=== PATIENT | female | born 1960 | race Caucasian/White ===

== ENCOUNTER 2022-01-02 21:51 | Inpatient (IN) | payer OTHER, SELFPAY ==
[2022-01-02 23:58] LABS: Absolute Lymphocytes (CBC) 0.2 K/uL (0.7-4.9); Hematocrit 36.8 % (36.0-45.0); Lymphocytes % 2.7 % (15.3-44.8); MCV 99.6 fL (80-100); MPV 8.6 fL (7.6-11.3)
[2022-01-03 00:05] LABS: Magnesium 2.2 mg/dL (1.8-2.4); Potassium 3.7 mmol/L (3.5-5.1); Troponin High Sensitivity 4.7 pg/mL (<58.9)
--- NOTE | 2022-01-03 00:35 | ER ---
Nurse's Notes [facility] Name: Janett Doherty Age: 61 yrs Sex: Female : 1960 Arrival Date: 01/02/2022 Time: 21:59 Bed 6 Private MD: Diagnosis: hyponatremia;Other seizures Presentation: 01/02 22:03 Chief complaint: EMS states: called out for SOB, on seen pt appeared to be having a as6 panic attack and hyperventilating, agricultural engineering teacher instructed pt on breathing, pt then started having a seizure, EMS gave 2mg Ativan. Coronavirus screen: At this time, the client does not indicate any symptoms associated with coronavirus-19. Ebola Screen: No symptoms or risks identified at this time. Initial Sepsis Screen: Does the patient meet any 2 criteria? No. Patient's initial sepsis screen is negative. Does the patient have a suspected source of infection? No. Patient's initial sepsis screen is negative. Risk Assessment: Do you want to hurt yourself or someone else? Unable to obtain. Onset of symptoms was January 02, 2022. Care prior to arrival: Medication(s) given: ativan 2 mg IV initiated. 18 GA, in the right antecubital area. 22:03 Method Of Arrival: EMS: [facility] as6 22:03 Acuity: JUSTIN 2 as6 Historical: - Allergies: 22:07 Unable to obtain; as6 - Home Meds: 22:07 venlafaxine 75 mg oral cp24 1 cap twice a day [Active]; [place] Thyroid 30 mg Oral tab 1 as6 tab once daily [Active]; verapamil 120 mg Oral C24P 1 cap once daily [Active]; - PMHx: 22:07 Unable to Obtain; as6 - PSHx: 22:07 Unable to Obtain; as6 - Immunization history:: Adult Immunizations unknown. - Social history:: Smoking status: unknown. Screenin:12 Abuse screen: Denies threats or abuse. Denies injuries from another. Nutritional as6 screening: No deficits noted. Tuberculosis screening: No symptoms or risk factors identified. Fall Risk None identified. Assessment: 22:10 General: Appears slender, Behavior is drowsy, quiet. Pain: Unable to use pain scale. as6 Patient is disoriented. Neuro: Level of Consciousness is lethargic, post ictal. Respiratory: Respiratory effort is even, unlabored. 22:22 Reassessment: Spoke with sister, Vita, sister reports pt does not have a history of as6 seizures, [phone]. 01/03 01:00 General: pt awake. pt states she does not remember calling 911. as6 Vital Signs: 01/02 22:03 BP 143 / 81; Pulse 93; Resp 13 S; Temp 97.6(A); Pulse Ox 96% on R/A; Weight 63.5 kg; as6 Height 5 ft. 6 in. (167.64 cm); 23:27 BP 117 / 65; Pulse 69; Pulse Ox 98% on R/A; ld1 01/03 00:59 BP 142 / 72; Pulse 72; Resp 14 S; Pulse Ox 100% on R/A; as6 01/02 22:03 Body Mass Index 22.60 (63.50 kg, 167.64 cm) as6 ED Course: 01/02 21:59 Patient arrived in ED. ms3 21:59 Eloy Dhaliwal DO is Attending Physician. ms3 22:02 Jose F Cuenca, CARO is Primary Nurse. as6 22:07 Triage completed. as6 22:10 Arm band placed on. as6 22:22 XRAY Chest (1 view) In Process Unspecified. EDMS 23:32 CT Head Brain wo Cont In Process Unspecified. EDMS 01/03 00:34 Kelvin Steinberg is Hospitalizing Provider. ms3 00:59 Placed in gown. Bed in low position. Call light in reach. Side rails up X2. Seizure as6 precautions initiated. Client placed on continuous cardiac and pulse oximetry monitoring. NIBP monitoring applied. Warm blanket given. 01:19 Shira Ordoñez MD is Hospitalizing Provider. ms3 03:03 No provider procedures requiring assistance completed. Patient admitted, IV remains in as6 place. 07:16 Primary Nurse role handed off by Jose F Cuenca, CARO eb 10:23 Edgar Morillo, CARO is Primary Nurse. ll1 Administered Medications: No medications were administered Medication: 00:59 VIS not applicable for this client. as6 Outcome: 00:34 Decision to Hospitalize by Provider. ms3 03:03 Admitted to ER Hold. Please see [employer] for further documentation. as6 03:03 Condition: stable 03:03 Instructed on the need for admit. 22:37 Patient left the ED. tw5 Signatures: Dispatcher [employer] EDPing Jarvis Lynsay RN RN ll1 Eloy Dhaliwal, DO BRANDON ms3 Katerine Carvajal RN RN ld1 Bushra Perry tw5 Jose F Cuenca RN RN as6
--- NOTE | 2022-01-03 00:35 | EDPHYS ---
Physician Documentation [facility] Name: Janett Doherty Age: 61 yrs Sex: Female : 1960 Arrival Date: 01/02/2022 Time: 21:59 Bed 6 Private MD: ED Physician Eloy Dhaliwal HPI: 01/03 03:06 This 61 yrs old Female presents to ER via EMS with complaints of shortness of breath/ ms3 seizure. 03:06 The patient presents after having a single isolated seizure, that lasted 1.5 minute(s). ms3 Character of seizure(s): Loss of consciousness: the patient experienced loss of consciousness, Motor activity: generalized, Incontinence: none, Apnea: the patient did not experience apnea, Circulation: the patient did not experience evidence of pulse disturbance. Seizure onset: just prior to arrival. Context: the seizure(s) was witnessed, by EMS personnel. Seizure Hx: Patient states she has had episodes similar to this with anxiety. Associated injury: The patient did not suffer any apparent associated injury. EMS care: Ativan, 2 mg(s), IV. Current symptoms: confusion. Historical: - Allergies: 01/02 22:07 Unable to obtain; as6 - Home Meds: 22:07 venlafaxine 75 mg oral cp24 1 cap twice a day [Active]; [place] Thyroid 30 mg Oral tab 1 as6 tab once daily [Active]; verapamil 120 mg Oral C24P 1 cap once daily [Active]; - PMHx: 22:07 Unable to Obtain; as6 - PSHx: 22:07 Unable to Obtain; as6 - Immunization history:: Adult Immunizations unknown. - Social history:: Smoking status: unknown. ROS: 01/03 03:06 Constitutional: Negative for fever, and chills. Neck: Negative for injury, pain, and ms3 swelling, Cardiovascular: Negative for chest pain, and palpitations. Abdomen/GI: Negative for abdominal pain, nausea, vomiting, diarrhea, and constipation, MS/Extremity: Negative for injury and deformity, Skin: Negative for injury, rash, and discoloration. Respiratory: Positive for shortness of breath. All other systems are negative. Exam: 01/02 22:47 ECG was reviewed by the Attending Physician. ms3 01/03 03:06 Constitutional: This is a well developed, well nourished patient who is awake, alert, ms3 and in no acute distress. Head/Face: Normocephalic, atraumatic. Eyes: Pupils equal round and reactive to light, extra-ocular motions intact. Lids and lashes normal. Conjunctiva and sclera are non-icteric and not injected. Periorbital areas with no swelling, redness, or edema. Neck: Trachea midline, no cervical lymphadenopathy. Supple, full range of motion without nuchal rigidity, or vertebral point tenderness. No Meningismus. Chest/axilla: Normal chest wall appearance and motion. Nontender with no deformity. Cardiovascular: Regular rate and rhythm with a normal S1 and S2. No gallops, murmurs, or rubs. Normal PMI, no JVD. No pulse deficits. Respiratory: Lungs have equal breath sounds bilaterally, clear to auscultation and percussion. No rales, rhonchi or wheezes noted. No increased work of breathing, no retractions or nasal flaring. Abdomen/GI: Soft, non-tender, with normal bowel sounds. No distension or tympany. No guarding or rebound. No evidence of tenderness throughout. Skin: Warm, dry with normal turgor. Normal color with no rashes, no lesions, and no evidence of cellulitis. MS/ Extremity: Pulses equal, no cyanosis. Neurovascular intact. Full, normal range of motion. Psych: Awake, alert, with orientation to person, place and time. Behavior, mood, and affect are within normal limits. Vital Signs: 01/02 22:03 BP 143 / 81; Pulse 93; Resp 13 S; Temp 97.6(A); Pulse Ox 96% on R/A; Weight 63.5 kg; as6 Height 5 ft. 6 in. (167.64 cm); 23:27 BP 117 / 65; Pulse 69; Pulse Ox 98% on R/A; ld1 01/03 00:59 BP 142 / 72; Pulse 72; Resp 14 S; Pulse Ox 100% on R/A; as6 01/02 22:03 Body Mass Index 22.60 (63.50 kg, 167.64 cm) as6 MDM: 01/02 21:59 Patient medically screened. ms3 01/03 03:06 Differential diagnosis: seizure, Anxiety vs electrolyte abnormality. Data reviewed: ms3 vital signs, nurses notes, lab test result(s), EKG, radiologic studies, CT scan, and as a result, I will admit patient. Data interpreted: Pulse oximetry: on room air is 100 %. Interpretation: normal. Counseling: I had a detailed discussion with the patient and/or guardian regarding: the historical points, exam findings, and any diagnostic results supporting the discharge/admit diagnosis, lab results, radiology results, the need for further work-up and treatment in the hospital. ED course: Discussed case with HANNAH Figueroa and she accepts patient on behalf of Dr Ordoñez.. 01/02 22:04 Order name: Basic Metabolic Panel; Complete Time: 00:29 ms3 01/02 22:04 Order name: CBC with Diff; Complete Time: 01:37 ms3 01/02 22:04 Order name: Magnesium; Complete Time: 00:29 ms3 01/02 22:04 Order name: Troponin HS; Complete Time: 00:29 ms3 01/03 00:01 Order name: Manual Differential; Complete Time: 01:37 EDMS 01/03 00:40 Order name: COVID-19 SARS RT PCR (Document "Date of Onset" if Symptomatic); Complete as6 Time: 02:28 01/03 03:36 Order name: Urine Drug Screen; Complete Time: 03:46 EDMS 01/03 03:48 Order name: Basic Metabolic Panel; Complete Time: 03:51 EDMS 01/03 03:48 Order name: Phosphorus; Complete Time: 03:51 EDMS 01/03 03:48 Order name: T4 Free; Complete Time: 03:51 EDMS 01/03 03:48 Order name: Magnesium; Complete Time: 03:51 EDMS 01/03 03:48 Order name: Thyroid Stimulating Hormone; Complete Time: 03:51 EDMS 01/03 03:52 Order name: CBC with Automated Diff; Complete Time: 03:53 EDMS 01/03 05:01 Order name: Urinalysis; Complete Time: 05:17 EDMS 01/02 22:04 Order name: XRAY Chest (1 view); Complete Time: 22:11 ms3 01/02 22:04 Order name: EKG; Complete Time: 22:05 ms3 01/02 22:04 Order name: Cardiac monitoring; Complete Time: 22:12 ms3 01/02 22:04 Order name: EKG - Nurse/Tech; Complete Time: 22:47 ms3 01/02 22:04 Order name: IV Saline Lock; Complete Time: 22:12 ms3 01/02 22:04 Order name: Labs collected and sent; Complete Time: 22:47 ms3 01/02 22:04 Order name: O2 Per Protocol; Complete Time: 22:12 ms3 01/02 22:04 Order name: O2 Sat Monitoring; Complete Time: 22:12 ms3 01/02 22:09 Order name: CT Head Brain wo Cont; Complete Time: 22:11 ms3 01/03 05:14 Order name: Urine Microscopic Only; Complete Time: 05:17 EDMS 01/03 05:46 Order name: Osmolality, Urine; Complete Time: 05:48 EDMS 01/03 05:47 Order name: UR SODIUM; Complete Time: 05:48 EDMS 01/03 06:17 Order name: Osmolality, Serum; Complete Time: 06:19 EDMS EC/13 22:47 Rate is 85 beats/min. Rhythm is regular. QRS [place] is Normal. QT interval is prolonged ms3 at 509 msec. Clinical impression: NSR with prolonged QT. Interpreted by me. Reviewed by me. Administered Medications: No medications were administered Disposition Summary: 01/03/22 00:34 Hospitalization Ordered Hospitalization Status: Inpatient Admission ms3 Condition: Stable ms3 Problem: new ms3 Symptoms: are unchanged ms3 Bed/Room Type: Standard ms3 Provider: Shira Ordoñez(01/03/22 01:19) ms3 Location: Telemetry/MedSurg (Inpatient)(01/03/22 19:32) Room Assignment: 217(01/03/22 22:12) Diagnosis - hyponatremia ms3 - Other seizures ms3 Forms: - Medication Reconciliation Form ms3 - SBAR form ms3 Signatures: Dispatcher [employer] EDMS Rosa Ruiz RN RN mw Basinger, Emily RN RN eb1 Eloy Dhaliwal DO DO ms3 Jose F Cuenca RN RN as6 Margarita Al PA PA sb3 Corrections: (The following items were deleted from the chart) 01/03 01:16 00:34 Telemetry/MedSurg (Inpatient) ms3 eb1 01:16 00:34 ms3 eb1 01:19 00:34 Kelvin Steinberg ms3 ms3 19:32 01:16 [facility] ER HOLD eb1 mw 19:32 01:16 ERHOLD- eb1 mw 22:12 19:32 mw mw
[2022-01-03 01:17] LABS: Blood Morphology Comment NOT SEEN (NOT SEEN); Platelet Estimate ADEQ
--- NOTE | 2022-01-03 01:55 | P.HP ---
Certification for Inpatient Patient admitted to: Inpatient With expected LOS: <2 Midnights Patient will require the following post-hospital care: None Practitioner: I am a practitioner with admitting privileges, knowledge of patient current condition, hospital course, and medical plan of care. Services: Services provided to patient in accordance with Admission requirements found in Title 42 Section 412.3 of the Code of Federal Regulations <Margarita Al - Last Filed: 01/03/22 02:26> Patient History Date of Service: 01/03/22 Reason for admission: Hyponatremia History of Present Illness: Patient is a 61-year-old F with hypertension and hypothyroidism who presented to the ED via EMS after witnessed seizure. Per EMS, patient called complaining of shortness of breath. When they arrived, she was noted to be hyperventilating and experiencing a panic attack. She then began to seize and administered 2 mg Ativan. Patient was postictal upon arrival. Vital signs stable. Her sister reports no history of seizures. Labs significant for Na 120, Cl 86, CO2 18, head CT negative. Serum osmolality, urine osmolality, urine sodium pending. Upon my assessment, patient no longer appears postictal but does seem altered, likely an underlying psychiatric component. Patient states she has been vomiting the past week and is dehydrated, likely causing hyponatremia. She is admitted for further evaluation and treatment. Home medications list reviewed: Yes - Past Medical/Surgical History Diabetic: No -: Hypothyroidism -: Hypertension Past Surgical History: Patient denies surgical history Psychosocial/ Personal History: Patient lives at home alone. - Social History Smoking Status: Former smoker Alcohol use: No CD- Drugs: No Caffeine use: Yes Place of Residence: Home <Margarita Al - Last Filed: 01/03/22 02:26> Date of Service: 01/03/22 <Shira Ordoñez - Last Filed: 01/03/22 08:52> Review of Systems General: Weakness <Margarita Al - Last Filed: 01/03/22 02:26> Physical Examination - Physical Exam General: Alert, In no apparent distress, Confused HEENT: Atraumatic, PERRLA, EOMI, Sclerae nonicteric Neck: Supple, No Thyromegaly Respiratory: Clear to auscultation bilaterally, Normal air movement Cardiovascular: Regular rate/rhythm, Normal S1 S2 Gastrointestinal: Normal bowel sounds, No tenderness Musculoskeletal: No tenderness Integumentary: No rashes Neurological: Normal speech, Normal strength at 5/5 x4 extr, Normal tone, Normal affect - Studies Laboratory Data (last 24 hrs) 01/02/22 23:30: WBC 8.2, Hgb 13.1, Hct 36.8, Plt Count 207 01/02/22 23:30: Sodium 120 L, Potassium 3.7, BUN 7, Creatinine 0.56, Glucose 158 H, Magnesium 2.2 <Margarita Al - Last Filed: 01/03/22 02:26> - Studies Laboratory Data (last 24 hrs) 01/02/22 23:30: WBC 8.2, Hgb 13.1, Hct 36.8, Plt Count 207 01/02/22 23:30: Sodium 120 L, Potassium 3.7, BUN 7, Creatinine 0.56, Glucose 158 H, Magnesium 2.2 <Shira Ordoñez - Last Filed: 01/03/22 08:52> Assessment and Plan - Problems (Diagnosis) (1) Hyponatremia Current Visit: Yes Status: Acute (2) Seizure Current Visit: Yes Status: Acute (3) Hypothyroidism Current Visit: Yes Status: Acute Qualifiers: Hypothyroidism type: unspecified Qualified Code(s): E03.9 - Hypothyroidism, unspecified (4) Hypertension Current Visit: Yes Status: Chronic Qualifiers: Hypertension type: primary hypertension Qualified Code(s): I10 - Essential (primary) hypertension - Plan -Serum osmolality, urine osmolality, urine sodium, and UDS pending -Seizure likely secondary to hypovolemic hyponatremia secondary to vomiting/dehydration -NS at 150 cc/hr -Seizure precautions in place -Reconcile and continue home medications -Monitor and replete electrolytes per protocol -Lovenox for VTE ppx -Full code Discharge Plan: Home Plan to discharge in: 48 Hours - Advance Directives Does patient have a Living Will: No Does patient have a Durable POA for Healthcare: No - Code Status/Comfort Care Code Status Assessed: Yes (Full) Critical Care: No Time Spent Managing Pts Care (In Minutes): 50 <Margarita Al - Last Filed: 01/03/22 02:26> Date of Service: 01/03/22 Subjective: HPI as mentioned above Physical Examination: Vitals: Afebrile vital signs are stable Physical exam: Cardiovascular: Within normal limits. Lungs: Within normal limits Abdomen: Within normal limits Neuro: Awake, alert, oriented to person place and time Assessment: 1. Hyponatremia 2. Alcohol abuse Plan: 1. Continue with current plan of care as mentioned above <Shira Ordoñez - Last Filed: 01/03/22 08:52>
[2022-01-03] MEDS ORDERED: ACETAMINOPHEN 500 MG TAB PO PRN (02:44)
[2022-01-03] MEDS ORDERED: ONDANSETRON 4 MG/2 ML VIAL IV PRN (02:44)
[2022-01-03] MEDS: NA CHLORIDE 0.9% 1,000 ML IV SCH ×4 (02:44→19:57)
[2022-01-03] MEDS ORDERED: NA CHLORIDE 0.9% 1,000 ML ONE ×3 (02:58→20:00)
[2022-01-03 03:04] VITALS: BMI 24.0
[2022-01-03 03:36] LABS: Barbiturates NEGATIVE (NEGATIVE); Benzodiazepines POSITIVE (NEGATIVE); Cocaine NEGATIVE (NEGATIVE); METHAMPHETAM NEGATIVE (NEGATIVE); Methadone NEGATIVE (NEGATIVE); Opiates NEGATIVE (NEGATIVE); Phencyclidine NEGATIVE (NEGATIVE); THC Cannibis NEGATIVE (NEGATIVE)
[2022-01-03 03:47] LABS: Magnesium 2.1 mg/dL (1.8-2.4); Phosphorus 3.5 mg/dL (2.5-4.9); Potassium 3.8 mmol/L (3.5-5.1); Thyroid Stimulating Hormone 0.239 uIU/mL (0.360-3.740)
[2022-01-03 03:51] LABS: Absolute Lymphocytes (CBC) 0.3 K/uL (0.7-4.9); Hematocrit 37.2 % (36.0-45.0); Lymphocytes % 3.7 % (15.3-44.8); MCV 98.2 fL (80-100); MPV 8.4 fL (7.6-11.3); RBC Red Blood Cell Count 3.79 M/uL (3.86-4.86)
[2022-01-03] MEDS ORDERED: ONDANSETRON 4 MG/2 ML VIAL ONE (04:34)
[2022-01-03 05:00] LABS: Urine Appearance Clear (Clear); Urine Bilirubin Negative (Negative); Urine Blood Trace-intact (Negative); Urine Color Yellow (Yellow); Urine Glucose Negative (Negative); Urine Protein Negative (Negative); Urine Specific Gravity >=1.030 (1.005-1.030); Urine Urobilinogen 0.2 mg/dL (0.2-1.0); Urine pH 5.5 (5.0-7.0)
[2022-01-03] MEDS ORDERED: LORazepam 2 MG/ML VIAL IV PRN ×2 (05:08→05:18)
[2022-01-03 05:14] LABS: Urine Bacteria <20 /HPF (<20); Urine RBC <5 /HPF (NONE SEEN)
[2022-01-03] MEDS ORDERED: FLUMAZENIL 0.1 MG/ML (5 mL VIAL) IV PRN (05:18)
[2022-01-03] MEDS ORDERED: LORazepam 2 MG/ML VIAL ONE ×4 (05:31→20:00)
[2022-01-03] MEDS ORDERED: LORazepam 2 MG/ML VIAL IV SCH (06:00)
[2022-01-03] MEDS ORDERED: MULTIVITAMIN TAB PO ONE (08:59)
[2022-01-03] MEDS ORDERED: THIAMINE HCL 100 MG TABLET ONE (08:59)
[2022-01-03] MEDS ORDERED: FOLIC ACID 1 MG TABLET ONE (08:59)
[2022-01-03] MEDS ORDERED: ENOXAPARIN 40 MG/0.4 ML SQ ONE (08:59)
[2022-01-03] MEDS ORDERED: MULTIVITAMIN TAB PO SCH (09:00)
[2022-01-03] MEDS ORDERED: FOLIC ACID 1 MG TABLET PO SCH (09:00)
[2022-01-03] MEDS ORDERED: ENOXAPARIN 40 MG/0.4 ML SQ SCH (09:00)
[2022-01-03] MEDS ORDERED: THIAMINE HCL 100 MG TABLET PO SCH (09:00)
[2022-01-03] MEDS: LORazepam 2 MG/ML VIAL IV PRN ×3 (09:40→19:57)
[2022-01-03] MEDS ORDERED: chlordiazePOXIDE HCl 5 MG CAP PO ONE ×2 (11:05→18:18)
[2022-01-03] MEDS: chlordiazePOXIDE HCl 5 MG CAP PO SCH ×2 (12:35→18:00)
--- NOTE | 2022-01-03 12:56 | RAD REPORT ---
EXAM DESCRIPTION: CT - Head Brain Wo Cont - 01/03/2022 6:31 am CLINICAL HISTORY: Seizure, new-onset, no history of trauma. TECHNIQUE: Noncontrast CT through the head was performed. Axial, coronal, and sagittal reconstructio ns were created and sent to PACS. This exam was performed according to our departmental dose-optimiza tion program which includes use of Automated Exposure Control, adjustment of the mA and/or kV accordi ng to patient size and/or use of iterative reconstruction technique. COMPARISON: None. FINDINGS: The brain parenchyma appears unremarkable. There is no intra-axial or extra-axial bleed se en. There is no mass or mass effect. The ventricles are unremarkable. The orbital contents appear unr emarkable. The visualized paranasal sinuses and mastoid air cells are patent. No acute fracture is identified. IMPRESSION: No acute intracranial abnormality identified. Electronically signed by: Pati Abrams MD 01/03/2022 12:27 AM CDT Due to temporary technical issues with the PACS/Fluency reporting system, reports are being signed by the in house radiologists without review as a courtesy to insure prompt reporting. The interpreting radiologist is fully responsible for the content of the report.
--- NOTE | 2022-01-03 13:04 | EKG ---
Test Date: 2022-01-02 Test Time: 22:47:33 Cnp: MEASUREMENT RESULTS: Intervals: Rate: 85 NE: 138 QRSD: 86 QT: 428 QTc: 509 [place]: P: 76 NE: 138 QRS: 88 T: 76 INTERPRETIVE STATEMENTS: Normal sinus rhythm Prolonged QT Abnormal ECG No previous ECG available for comparison Electronically Signed On 01-03-22 13:03:57 CDT by Diomedes Casas
--- NOTE | 2022-01-03 14:09 | RAD REPORT ---
EXAM DESCRIPTION: RAD - Chest Single View - 01/02/2022 10:21 pm CLINICAL HISTORY: 11 years Female, SOB COMPARISON: None FINDINGS: No focal lung consolidation. No pleural effusion. No pneumothorax. Cardiac silhouette is mildly enlarged. Mild central pulmonary vascular congestion. No acute osseous abnormality. Soft tissues are unremarkable. IMPRESSION: Mild cardiomegaly and central pulmonary vascular congestion. No focal pulmonary opacitie s. Electronically signed by: Dionicio Genao DO 01/03/2022 4:56 AM CDT Due to temporary technical issues with the PACS/Fluency reporting system, reports are being signed by the in house radiologists without review as a courtesy to insure prompt reporting. The interpreting radiologist is fully responsible for the content of the report.
[2022-01-04] MEDS: chlordiazePOXIDE HCl 5 MG CAP PO SCH ×2 (00:30→05:20)
[2022-01-04] MEDS: NA CHLORIDE 0.9% 1,000 ML IV SCH (03:44)
[2022-01-04 04:31] VITALS: O2SAT 100
[2022-01-04 06:02] LABS: Hematocrit 38.8 % (36.0-45.0); MCV 100.5 fL (80-100); MPV 8.5 fL (7.6-11.3); RBC Red Blood Cell Count 3.86 M/uL (3.86-4.86)
[2022-01-04 06:18] LABS: Magnesium 2.3 mg/dL (1.8-2.4); Phosphorus 2.1 mg/dL (2.5-4.9)
[2022-01-04 06:31] LABS: Albumin 3.6 g/dL (3.4-5.0); Bilirubin Total 1.2 mg/dL (0.2-1.0); Potassium 3.1 mmol/L (3.5-5.1); Protein, Total 6.4 g/dL (6.4-8.2)
[2022-01-04] MEDS ORDERED: POTASSIUM CL SA 10 MEQ TAB PO ONE (09:00)
[2022-01-04 09:35] VITALS: BP 122/72; TEMP 97.8
[2022-01-05] MEDS ORDERED: LORazepam 2 MG/ML VIAL IV SCH (06:00)
--- NOTE | 2022-01-08 01:09 | P.DS ---
Discharge Date: 01/04/22 Disposition: ROUTINE DISCHARGE Discharge Condition: GOOD Reason for Admission: Hyponatremia Brief History of Present Illness: Patient is a 61-year-old F with hypertension and hypothyroidism who presented to the ED via EMS after witnessed seizure. Per EMS, patient called complaining of shortness of breath. When they arrived, she was noted to be hyperventilating and experiencing a panic attack. She then began to seize and administered 2 mg Ativan. Patient was postictal upon arrival. Vital signs stable. Her sister reports no history of seizures. Labs significant for Na 120, Cl 86, CO2 18, head CT negative. Serum osmolality, urine osmolality, urine sodium pending. Upon my assessment, patient no longer appears postictal but does seem altered, likely an underlying psychiatric component. Patient states she has been vomiting the past week and is dehydrated, likely causing hyponatremia. She is admitted for further evaluation and treatment. Hospital Course: Patient's sodium is corrected. Patient's clinical symptoms are improved. Patient has been advised to refrain from alcohol use. Will give the patient Librium. At this time, patient is stable for discharge home. Vital Signs/Physical Exam: Temp Pulse Resp BP Pulse Ox 97.8 F 89 16 122/72 100 01/04/22 08:00 01/04/22 08:00 01/04/22 08:00 01/04/22 08:00 01/04/22 08:00 General: Alert, In no apparent distress, Oriented x3 Laboratory Data at Discharge: WBC 5.7 K/uL (4.3-10.9) D 01/04/22 05:10 Hgb 13.6 g/dL (12.0-15.0) 01/04/22 05:10 Hct 38.8 % (36.0-45.0) 01/04/22 05:10 Plt Count 211 K/uL (152-406) 01/04/22 05:10 Sodium 139 mmol/L (136-145) 01/04/22 05:10 Potassium 3.1 mmol/L (3.5-5.1) L 01/04/22 05:10 BUN 7 mg/dL (7-18) 01/04/22 05:10 Creatinine 0.63 mg/dL (0.55-1.3) 01/04/22 05:10 Glucose 131 mg/dL (74-106) H 01/04/22 05:10 Phosphorus 2.1 mg/dL (2.5-4.9) L 01/04/22 05:10 Magnesium 2.3 mg/dL (1.8-2.4) 01/04/22 05:10 Total Bilirubin 1.2 mg/dL (0.2-1.0) H 01/04/22 05:10 AST 22 U/L (15-37) 01/04/22 05:10 ALT 40 U/L (12-78) 01/04/22 05:10 Alkaline Phosphatase 75 U/L (45-117) 01/04/22 05:10 Home Medications: Dextroamphetamine/Amphetamine [Dextroamp-Amphetamin 20 mg Tab] 1 tab PO TID 01/04/22 Thyroid Tab [[place] Thyroid*] 1 tab PO DAILY 01/04/22 Verapamil HCl [Verapamil ER] 1 tab PO DAILY 01/04/22 chlordiazePOXIDE HCl [Chlordiazepoxide HCl] 10 mg PO TID #50 capsule 01/04/22 New Medications: chlordiazePOXIDE HCl [Chlordiazepoxide HCl] 10 mg PO TID #50 capsule Physician Discharge Instructions: -DC IV and DC home -Follow-up with PCP in 1 to 2 weeks -Refrain from alcohol use or any substance abuse while on Librium -Please call Dr. Ordoñez at [phone] if any questions regarding hospital stay -Please call nursing station at [phone] if any nursing or medication questions -Return to the emergency room if symptoms worsen Diet: Regular Activity: Fall precautions Time spent managing pt's care (in minutes): 35
== END 2022-01-04 09:15 | disposition home or self-care (01) | DRG 641 ==
LOC: ER 21:51 → ERHOLD 01-03 01:49 → 2ND 01-03 22:18
PROVIDERS: ADMIT Hospitalist; ATTEND Hospitalist
DX: E87.1 Hypo-osmolality and hyponatremia (principal); F10.139 Alcohol abuse with withdrawal, unspecified; I10 Essential (primary) hypertension; E03.9 Hypothyroidism, unspecified; E86.0 Dehydration; R56.9 Unspecified convulsions; E86.1 Hypovolemia; Z87.891 Personal history of nicotine dependence; Z20.822 Contact with and (suspected) exposure to COVID-19
CPT/HCPCS: 36415; 70450; 71045; 80048; 80053; 80307; 81003; 81015; 82533; 83735; 83930; 83935; 84100; 84300; 84439; 84443; 84484; 85025; 93005; 99285; J1650; J2405; J7030; U0003